=== PATIENT | male | born 1955 | race Caucasian/White ===

== ENCOUNTER 2018-01-01 09:00 | Emergency (ER) | payer OTHER ==
[~2018-01-01] VITALS: Ht 185.4 cm; Wt 96.3 kg
[2018-01-01] MEDS ORDERED: VALTREX1000 MG PO (10:07)
[2018-01-01] MEDS ORDERED: MEDROL DOSEPAK4 MG PO (10:07)
[2018-01-01 10:34] VITALS: BP 146/95
== END 2018-01-01 10:36 | disposition home or self-care (01) ==
LOC: EME 09:00
DX: G51.0 Bell's palsy (principal); I10 Essential (primary) hypertension
CPT/HCPCS: 99281; 99284; J7512